=== PATIENT | male | born 1955 | race African-American/Black ===

== ENCOUNTER 2017-12-17 19:23 | Emergency (ER) | payer MEDICAID ==
[~2017-12-17] VITALS: Ht 180.3 cm; Wt 88.0 kg
[~2017-12-17 19:23] MED LIST: ALD50 PO; ASPI-1158; CIPR-263; DOCU-138; FLONAS; HYDR25SU; IBUP-1008; IBUP-779; INSASP; KETO60VI; LOP25; LORA-68; METO5TAB86; METR500T; NAP5EC; OMEP20CA4; P EP; PROAIR; SIMV40TA2; TRAM50TA3; [UNRECOGNIZED DRUG - CODE]; [UNRECOGNIZED DRUG - OTHER]
[2017-12-17 20:34] LABS: BASOPHILS % 0.6 % (0.0-2.0); EOSINOPHILS % 6.1 % (0.0-5.0); HEMATOCRIT. 41.4 % (42.0-52.0); LYMPHOCYTES % 35.8 % (20.0-50.0); MEAN CORPUSCULAR HEMOGLOBIN 29.6 pg (28.0-32.0); MEAN CORPUSCULAR VOLUME 87.7 fL (80.0-94.0); MEAN PLATELET VOLUME 8.4 fl (7.4-10.4); MONOCYTES % 8.5 % (2.0-8.0); PLATELET 116 x1000/uL (130-400); RED BLOOD CELL COUNT 4.72 mill/uL (4.7-6.1); RED CELL DISTRIBUTION WIDTH 12.3 % (11.6-14.6)
[2017-12-17 20:36] LABS: CHLORIDE 106 mEq/L (98-107)
[2017-12-17] MEDS ORDERED: KETOROLAC 60MG/2ML VIAL IM ONE (23:45)
[2017-12-17] MEDS ORDERED: PREDNISONE 20MG TABLET PO ONE (23:45)
[2017-12-18 00:37] VITALS: BP 133/70
== END 2017-12-18 00:49 | disposition home or self-care (01) ==
LOC: ER 19:23
DX: M19.90 Unspecified osteoarthritis, unspecified site (principal); E11.9 Type 2 diabetes mellitus without complications; M54.5 Low back pain; F41.9 Anxiety disorder, unspecified; I51.9 Heart disease, unspecified; Z95.0 Presence of cardiac pacemaker; Z87.891 Personal history of nicotine dependence; Z79.4 Long term (current) use of insulin; Z88.8 Allergy status to other drugs, medicaments and biological substances
CPT/HCPCS: 36415; 80053; 85025; 93005; 96372; 99285; J1885; J7512

== ENCOUNTER 2018-01-05 08:24 | Emergency (ER) | payer MEDICAID ==
[~2018-01-05] VITALS: Ht 172.7 cm; Wt 88.0 kg
[2018-01-05] MEDS ORDERED: KETOROLAC 60MG/2ML VIAL IM ONE (10:15)
[2018-01-05 10:20] VITALS: BP 113/75
== END 2018-01-05 10:29 | disposition home or self-care (01) ==
LOC: ER 08:42
DX: M13.812 Other specified arthritis, left shoulder (principal); M13.811 Other specified arthritis, right shoulder; Z79.4 Long term (current) use of insulin; Z79.82 Long term (current) use of aspirin
CPT/HCPCS: 96372; 99283; J1885; Z7610

== ENCOUNTER 2018-05-04 11:10 | Emergency (ER) | payer MEDICAID ==
[~2018-05-04] VITALS: Ht 170.2 cm; Wt 91.0 kg
[2018-05-04 11:34] VITALS: BP 103/68
== END 2018-05-04 13:07 | disposition home or self-care (01) ==
LOC: ER 12:09
DX: M54.9 Dorsalgia, unspecified (principal); Z79.899 Other long term (current) drug therapy; Z79.82 Long term (current) use of aspirin; Z88.2 Allergy status to sulfonamides; Z95.0 Presence of cardiac pacemaker; Z79.4 Long term (current) use of insulin
CPT/HCPCS: 99281

== ENCOUNTER 2018-06-11 12:28 | Emergency (ER) | payer OTHER, MEDICAID ==
[~2018-06-11] VITALS: Ht 175.3 cm; Wt 88.0 kg
[2018-06-11] MEDS ORDERED: PIPERACILLIN/TAZOBACTAM 3.375GM/50ML PREMIX IV ONE (13:45)
[2018-06-11] MEDS ORDERED: VANCOMYCIN 1 G PREMIX 200 ML IV SCH (13:45)
[2018-06-11] MEDS ORDERED: PIPERACILLIN/TAZ 3.375G PREMIX 50 ML IV SCH (14:00)
[2018-06-11] MEDS ORDERED: ONDANSETRON HCL 4MG/2ML INJ IV ONE (14:15)
[2018-06-11] MEDS ORDERED: MORPHINE SULFATE 4 MG/ML CPJ (NOT FOR IM USE) IV ONE (14:15)
[2018-06-11 14:50] LABS: BASOPHILS % 0.6 % (0.0-2.0); EOSINOPHILS % 0.4 % (0.0-5.0); HEMATOCRIT. 43.3 % (42.0-52.0); HEMOGLOBIN. 14.5 g/dL (14.0-18.0); MEAN CORPUSCULAR HEMOGLOBIN 29.7 pg (28.0-32.0); MEAN CORPUSCULAR VOLUME 88.2 fL (80.0-94.0); MEAN PLATELET VOLUME 9.5 fl (7.4-10.4); MONOCYTES % 4.5 % (2.0-8.0); NEUTROPHILS % 84.5 % (40.0-76.0); PLATELET 136 x1000/uL (130-400); RED CELL DISTRIBUTION WIDTH 12.1 % (11.6-14.6)
[2018-06-11 14:53] LABS: INR 1.1; PARTIAL THROMBOPLASTIN TIME 28.3 sec (23.4-31.0); PROTHROMBIN TIME 11.5 sec (9.1-11.1)
[2018-06-11 14:57] LABS: CHLORIDE 94 mEq/L (98-107)
[2018-06-11] MEDS ORDERED: SODIUM CHLORIDE 0.9% 1,000 ML IV NR (15:45)
[2018-06-11] MEDS ORDERED: INSULIN REGULAR (HUMULIN R) 300UNITS/3ML IV NR (16:20)
[2018-06-11 17:19] LABS: CLARITY URINE CLEAR (CLEAR); COLOR URINE YELLOW (YELLOW); KETONES URINE 1+ (NEGATIVE); LEUKOCYTE ESTERASE URINE NEGATIVE (NEGATIVE); NITRITE URINE NEGATIVE (NEGATIVE); OCCULT BLOOD URINE NEGATIVE (NEGATIVE); PH URINE 5.5 (4.5-8.0); PROTEIN URINE NEGATIVE (NEGATIVE); SPECIFIC GRAVITY URINE 1.038 (1.005-1.030)
[2018-06-11 18:21] VITALS: BP 126/83
== END 2018-06-11 18:58 | disposition short-term general hospital (02) ==
LOC: ER 13:39
DX: L03.011 Cellulitis of right finger (principal); S61.253A Open bite of left middle finger without damage to nail, initial encounter; Y04.1XXA Assault by human bite, initial encounter; Y93.89 Activity, other specified; Y92.098 Other place in other non-institutional residence as the place of occurrence of the external cause; E11.65 Type 2 diabetes mellitus with hyperglycemia; Z79.4 Long term (current) use of insulin; Z88.8 Allergy status to other drugs, medicaments and biological substances
CPT/HCPCS: 36415; 73140; 80053; 81003; 82962; 84550; 85025; 85610; 85730; 87040; 96365; 96366; 96367; 96375; 99285; J1815; J2270; J2405; J2543; J3370; J7030

== ENCOUNTER 2021-01-12 09:28 | Emergency (ER) | payer MEDICARE, MEDICAID ==
[~2021-01-12] VITALS: Ht 180.3 cm; Wt 88.0 kg
[~2021-01-12 09:28] MED LIST changes: -ASPI-1158; +ASPI-1406
[2021-01-12] MEDS ORDERED: IBUPROFEN 600MG TABLET PO ONE (10:00)
[2021-01-12] MEDS ORDERED: DIAZEPAM 5 MG TABLET PO ONE (10:00)
[2021-01-12] MEDS ORDERED: T3 PO ×2 (11:26→11:31)
[2021-01-12 11:47] VITALS: BP 129/87
== END 2021-01-12 11:47 | disposition home or self-care (01) ==
LOC: ER 09:28
DX: M51.36 Other intervertebral disc degeneration, lumbar region (principal); Z88.2 Allergy status to sulfonamides; Z79.899 Other long term (current) drug therapy; Z79.4 Long term (current) use of insulin; Z98.890 Other specified postprocedural states
CPT/HCPCS: 72110; 99283